=== PATIENT | male | born 1955 | race Caucasian/White ===

== ENCOUNTER → 2017-02-05 | Outpatient (CLI) | payer BC | END | disposition home or self-care (01) | LOC: CFH 12:37 | PROVIDERS: ATTEND Internal Medicine Cardiovascular Disease | DX: I10 Essential (primary) hypertension (principal); R94.31 Abnormal electrocardiogram [ECG] [EKG] | CPT/HCPCS: 78452; 93017; A9502 ==

== ENCOUNTER → 2018-03-12 | Outpatient (CLI) | payer BC | END | disposition home or self-care (01) | LOC: CFH 10:12 | PROVIDERS: ATTEND Nurse Practitioner Family | DX: I37.1 Nonrheumatic pulmonary valve insufficiency (principal); I10 Essential (primary) hypertension | CPT/HCPCS: 93306 ==

== ENCOUNTER 2020-06-11 08:49 | Inpatient (IN) | payer BC ==
[~2020-06-11] VITALS: Ht 182.9 cm; Wt 94.4 kg
[2020-06-11] MEDS ORDERED: SODIUM CHLORIDE 0.9% 1,000 ML IV SCH (09:30)
[2020-06-11] MEDS ORDERED: APIX5TAB PO (09:34)
[2020-06-11] MEDS ORDERED: NEBI2.5T2 PO (09:34)
[2020-06-11] MEDS ORDERED: CELE200C PO (09:37)
[2020-06-11] MEDS ORDERED: FERR324T5 PO (09:37)
[2020-06-11] MEDS ORDERED: VALS1TAB22 PO (09:37)
[2020-06-11] MEDS ORDERED: CLIN300C9 PO (09:37)
[2020-06-11] MEDS ORDERED: VENL37.57 PO (09:37)
[2020-06-11 09:46] VITALS: BP 134/87
[2020-06-11] MEDS ORDERED: PLEASE ENTER HEIGHT AND WEIGHT MC SCH (10:00)
[2020-06-11 10:15] LABS: BASOPHILS % (AUTO) 1 % (0-1); EOSINOPHILS % (AUTO) 3 % (1-7); LYMPHOCYTES % (AUTO) 17 % (22-44); MEAN CORPUSCULAR HEMOGLOBIN 32.4 pg (27.5-34.5); MEAN CORPUSCULAR HGB CONC 34.5 g/dL (33.2-36.2); MONOCYTES % (AUTO) 9 % (2-9); NEUTROPHILS % (AUTO) 70 % (42-75); PLATELET COUNT 269 x10^3/uL (130-400); RED BLOOD COUNT 4.59 x10^6/uL (4.38-5.82); RED CELL DISTRIBUTION WIDTH 14.3 % (9.4-14.8)
[2020-06-11 10:17] LABS: MD NO
[2020-06-11 10:25] LABS: ANION GAP 7 mmol/L (5-15); CALCIUM 9.4 mg/dL (8.5-10.1); CHLORIDE 106 mmol/L (98-107); INTERNATIONAL NORMALIZED RATIO 0.95 (0.93-1.1); PROTHROMBIN TIME 10.2 Seconds (9.6-11.5)
[2020-06-11] MEDS ORDERED: MIDAZOLAM 1 MG/ML, 5ML ONE (11:24)
[2020-06-11] MEDS ORDERED: LIDOCAINE 2%, 20ML ONE ×3 (11:25)
[2020-06-11] MEDS ORDERED: FENTANYL PF 100 MCG/2ML ONE (11:25)
[2020-06-11] MEDS ORDERED: ISOPROTERENOL 0.2MG/ML, 5ML ONE (11:29)
[2020-06-11] MEDS ORDERED: DIPHENHYDRAMINE 50 MG/ML, 1ML ONE (11:29)
[2020-06-11 13:58] VITALS: BP 149/84
[2020-06-11] MEDS ORDERED: CLINDAMYCIN 300 MG CAPSULE PO SCH (14:00)
[2020-06-11] MEDS: HYDROmorphone 2MG TABLET PO PRN ×2 (15:09→21:02)
[2020-06-11] MEDS: CLINDAMYCIN 300 MG CAPSULE PO SCH (17:58)
[2020-06-11] MEDS: SOTALOL 80MG TABLET PO SCH (17:58)
[2020-06-11 18:13] VITALS: BP 121/79
[2020-06-11 20:00] VITALS: BP 113/73
[2020-06-11] MEDS ORDERED: HYDROCHLOROTHIAZIDE PO SCH (21:00)
[2020-06-11] MEDS ORDERED: [UNRECOGNIZED DRUG - OTHER] PO SCH (21:00)
[2020-06-11] MEDS ORDERED: VALSARTAN PO SCH (21:00)
[2020-06-11] MEDS: APIXABAN 5 MG TABLET PO SCH (21:02)
[2020-06-12 00:31] VITALS: BP 111/74
[2020-06-12] MEDS: ACETAMINOPHEN 325 MG TABLET PO PRN ×2 (00:38→20:06)
[2020-06-12 05:36] VITALS: BP 122/71
[2020-06-12] MEDS: CLINDAMYCIN 300 MG CAPSULE PO SCH ×2 (05:41→17:57)
[2020-06-12] MEDS: SOTALOL 80MG TABLET PO SCH ×2 (05:44→17:57)
[2020-06-12 07:56] VITALS: BP 120/71
[2020-06-12] MEDS: VENLAFAXINE 37.5MG TABLET PO SCH (08:27)
[2020-06-12] MEDS: APIXABAN 5 MG TABLET PO SCH ×2 (08:27→20:07)
[2020-06-12] MEDS: HYDROCHLOROTHIAZIDE 12.5 MG CAPSULE PO SCH (08:27)
[2020-06-12] MEDS: VALSARTAN 80 MG TABLET PO SCH (08:27)
[2020-06-12 08:35] VITALS: BP 139/84
[2020-06-12 12:43] VITALS: BP 137/79
[2020-06-12] MEDS: DIPHENHYDRAMINE 50 MG/ML, 1ML IVPush PRN (15:27)
[2020-06-12 18:58] VITALS: BP 115/71
[2020-06-12] MEDS ORDERED: FAMOTIDINE 40 MG TABLET ONE (19:50)
[2020-06-12] MEDS: FAMOTIDINE 20 MG TABLET PO SCH (20:05)
[2020-06-12] MEDS: DIPHENHYDRAMINE 50 MG CAPSULE PO PRN (20:07)
[2020-06-13 00:41] VITALS: BP 113/65
[2020-06-13] MEDS: DIPHENHYDRAMINE 50 MG/ML, 1ML IVPush PRN (02:57)
[2020-06-13] MEDS: ACETAMINOPHEN 325 MG TABLET PO PRN (02:58)
[2020-06-13] MEDS: DIPHENHYDRAMINE 50 MG CAPSULE PO PRN (03:28)
[2020-06-13] MEDS: CLINDAMYCIN 300 MG CAPSULE PO SCH (06:29)
[2020-06-13] MEDS: SOTALOL 80MG TABLET PO SCH (07:52)
[2020-06-13] MEDS ORDERED: FAMOTIDINE 40 MG TABLET ONE (07:53)
[2020-06-13 07:54] VITALS: BP 144/88
[2020-06-13] MEDS: APIXABAN 5 MG TABLET PO SCH (08:03)
[2020-06-13] MEDS: HYDROCHLOROTHIAZIDE 12.5 MG CAPSULE PO SCH (08:03)
[2020-06-13] MEDS: FAMOTIDINE 20 MG TABLET PO SCH (08:03)
[2020-06-13] MEDS: VENLAFAXINE 37.5MG TABLET PO SCH (08:03)
[2020-06-13] MEDS: VALSARTAN 80 MG TABLET PO SCH (08:03)
== END 2020-06-13 09:15 | disposition home or self-care (01) | DRG 274 ==
LOC: CACL 08:49 → ORIP 13:47 → 5SO 14:22 → DCLOUNGE 06-13 09:11
PROVIDERS: ADMIT Internal Medicine Clinical Cardiac Electrophysiology; ATTEND Internal Medicine Clinical Cardiac Electrophysiology
PROC: 02563ZZ Destruction of Right Atrium, Percutaneous Approach (ICD-10-PCS; principal; 2020-06-11)
DX: I49.3 Ventricular premature depolarization (principal); D68.69 Other thrombophilia; I48.0 Paroxysmal atrial fibrillation; G47.33 Obstructive sleep apnea (adult) (pediatric); I10 Essential (primary) hypertension; L29.9 Pruritus, unspecified; Z87.891 Personal history of nicotine dependence; Z79.899 Other long term (current) drug therapy; Z79.891 Long term (current) use of opiate analgesic; Z79.01 Long term (current) use of anticoagulants
CPT/HCPCS: 36415; 93623; 93654; J3490; 71046; 80048; 85025; 85610; 93005; 99156; 99157; C1894; G0378; J2250; J3010; C2630; J1200; Q0177